=== PATIENT | male | born 1945 | race Caucasian/White ===

== ENCOUNTER 2024-06-19 11:11 | Outpatient (CLI) | payer OTHER | END 2024-06-19 23:59 | disposition home or self-care (01) | LOC: RAD 11:11 | PROVIDERS: ATTEND Physician Assistant | DX: I67.82 Cerebral ischemia (principal); I61.9 Nontraumatic intracerebral hemorrhage, unspecified; G31.9 Degenerative disease of nervous system, unspecified | CPT/HCPCS: 70450 ==

== ENCOUNTER 2025-03-11 13:01 | Outpatient (CLI) | payer OTHER ==
--- NOTE | 2025-03-11 13:48 | RADIOLOGY REPORT ---
DI CHEST,TWO VIEWS CLINICAL HISTORY: PLEURAL EFFUSION COMPARISON: None TECHNIQUE: Frontal and lateral view of the chest was obtained FINDINGS: Lines and Tubes: Right sided pacemaker. Lungs: No focal consolidation. Pleura: No effusion. No pneumothorax. Cardiomediastinal contours:Carediomegaly Bones: No acute osseous abnormality. IMPRESSION: Cardiomegaly with CHF>
== END 2025-03-11 23:59 | disposition home or self-care (01) ==
LOC: RAD 13:01
PROVIDERS: ATTEND Physician Assistant
DX: J90 Pleural effusion, not elsewhere classified (principal); I51.7 Cardiomegaly; Z95.0 Presence of cardiac pacemaker
CPT/HCPCS: 71046